=== PATIENT | female | born 1955 | race Caucasian/White ===

== ENCOUNTER 2016-10-05 21:37 | Observation (INO) | payer OTHER ==
[~2016-10-05] VITALS: Ht 160 cm; Wt 59.3 kg
[~2016-10-05 21:37] MED LIST: AMLODIPINE BESY10 MG PO; APRESOLINE100 MG PO; ASPIRIN E.C.81 M1 PO; ASPIRIN81 M1 PO; Apresoline PO; Ascorbic Acid,Ester- PO; BYSTOLIC10 MG PO; CYMBALTA30 MG PO; Cymbalta PO; Dulcolax PO; Dulcolax PR; Fish Oil PO; GLUCOPHAGE850 MG PO; Glucophage PO; IRON325 MG PO; LANTUS 3 M100 UNITS/ SC; LANTUS 3 M100 UNITS1 SQ; LIPITOR40 MG PO; LISINOPRIL40 MG PO; Lipitor PO; METFORMIN HCL500 MG PO; NEURONTIN100 MG PO; Neurontin PO; Norvasc PO; OYST-CAL D, OS500 M1 PO; PERCOCET 5/31 TABLET PO; PLAVIX75 MG PO; PYRIDOSTIGMINE60 MG PO; Protonix PO; SENOKOT S,PE1 TABLET PO; THERAGRAN1 TABLET PO; ULTRAM50 MG PO; Vibramycin, Doryx PO; Vitamin D, Drisdol PO; ZESTRIL,PRINIVI40 M1 PO; Zestril,Prinivil PO; Zoloft PO
[2016-10-05 22:14] LABS: POINT-OF-CARE METER ID UU13113702
[2016-10-05 22:43] LABS: POINT-OF-CARE METER ID UU13113702
[2016-10-05 22:44] LABS: HEMATOCRIT 34.7 % (36.0-46.0); MCH 29.9 PG (29.0-34.0); MCHC 31.4 G/DL (30.0-36.0); MCV 95.1 FL (83-99); MEAN PLAT.VOLUME 10.3 uM^3 (9.5-12.4); PLATELET COUNT 196 K/uL (156-360); RBC DIS.WIDTH-CV 12.3 % (11.8-14.6); RBC DIS.WIDTH-SD 42.8 % (39-53); RED BLOOD COUNT 3.65 M/uL (3.80-5.20); WHITE BLOOD COUNT 5.4 K/uL (4.1-10.2)
[2016-10-05 22:53] LABS: CHLORIDE 103 mEq/L (99-109); POTASSIUM 3.8 mEq/L (3.7-5.4); SODIUM 143 mEq/L (136-147)
[2016-10-05 22:57] LABS: ANION GAP 16 MEQ/L (2-14); TOTAL BILIRUBIN 0.2 mg/dL (0.0-1.0)
[2016-10-05 22:59] LABS: ALKALINE PHOSPHATASE 86 IU/L (3-129); GFR ESTIMATE (CALCULATED) 26 mL/min/
[2016-10-05 23:00] LABS: UREA NITROGEN (BUN) 44 mg/dL (9-23)
[2016-10-05 23:02] LABS: LIPASE 42 U/L (1.0-51.0)
[2016-10-05 23:03] LABS: GLUCOSE 31 mg/dL (70-99)
[2016-10-05 23:04] LABS: TROP-I INTERPRETATION NEGATIVE; TROPONIN-I < 0.01 ng/mL (0.0-0.30)
[2016-10-06] MEDS ORDERED: CYMBALTA30 MG PO (01:36)
[2016-10-06] MEDS ORDERED: HUMALOG100 UNIT/2 SC (01:38)
[2016-10-06 01:46] LABS: POINT-OF-CARE METER ID UU13113702
[2016-10-06 05:35] LABS: POINT-OF-CARE METER ID UU13113702
[2016-10-06 08:00] LABS: POINT-OF-CARE METER ID UU13113702
[2016-10-06 09:34] LABS: POINT-OF-CARE METER ID UU13113702
[2016-10-06 10:17] VITALS: BP 168/79
[2016-10-06 10:19] LABS: TROP-I INTERPRETATION NEGATIVE; TROPONIN-I 0.02 ng/mL (0.0-0.30)
[2016-10-06 11:04] LABS: Estimated Average Glucose 163 mg/dL (70-123); HEMOGLOBIN A1c (GLYCOHEMOGLOB) 7.3 % HGB (Below 5.7)
[2016-10-06 11:17] VITALS: BP 187/81
[2016-10-06] MEDS ORDERED: MESTINON60 MG PO (11:26)
[2016-10-06 12:25] LABS: POINT-OF-CARE METER ID UU13113700
[2016-10-06 16:11] VITALS: BP 155/76
[2016-10-06 16:26] LABS: TROP-I INTERPRETATION NEGATIVE; TROPONIN-I 0.02 ng/mL (0.0-0.30)
[2016-10-06 20:00] VITALS: BP 161/86
[2016-10-07] VITALS: BP 152/70
[2016-10-07 02:44] LABS: POINT-OF-CARE METER ID UU13113831
[2016-10-07 03:16] VITALS: BP 127/57
[2016-10-07 06:47] LABS: ANION GAP 5 MEQ/L (2-14); CHLORIDE 106 MEQ/L (99-109); SAMPLE HEMOLYSIS CHECK 0; SAMPLE ICTERIC CHECK 0; SAMPLE LIPEMIA CHECK 0; SODIUM 139 MEQ/L (136-147); UREA NITROGEN (BUN) 32 mg/dL (9-23)
[2016-10-07 06:49] LABS: GFR ESTIMATE (CALCULATED) 38 mL/min/; GLUCOSE 158 mg/dL (70-99); POTASSIUM 4.6 MEQ/L (3.7-5.4)
[2016-10-07 08:00] VITALS: BP 132/65
[2016-10-07 08:43] LABS: POINT-OF-CARE METER ID UU13113700
[2016-10-07 11:17] VITALS: BP 135/68
[2016-10-07] MEDS ORDERED: LANTUS 3 M100 UNITS1 SC (12:39)
[2016-10-07 12:40] LABS: POINT-OF-CARE METER ID UU13113700
== END 2016-10-07 15:26 | disposition home or self-care (01) ==
LOC: EME 21:37 → EDOF 10-06 04:15 → 5WEST 10-06 04:15 → EDOF 10-06 09:11 → 5WEST 10-06 10:01
PROVIDERS: Emergency Medicine; Internal Medicine
DX: E11.649 Type 2 diabetes mellitus with hypoglycemia without coma (principal); N17.9 Acute kidney failure, unspecified; I12.9 Hypertensive chronic kidney disease with stage 1 through stage 4 chronic kidney disease, or unspecified chronic kidney disease; N18.9 Chronic kidney disease, unspecified; M47.892 Other spondylosis, cervical region; M48.02 Spinal stenosis, cervical region; F32.9 Major depressive disorder, single episode, unspecified; F41.9 Anxiety disorder, unspecified; D64.9 Anemia, unspecified
CPT/HCPCS: 70450; 71010; 80048; 80053; 81003; 82948; 83036; 83605; 83690; 84484; 85027; 93005; 99281; 99285; G0378; J1815